=== PATIENT | female | born 2000 | race Caucasian/White ===

== ENCOUNTER 2023-04-16 15:08 | Emergency (ER) | payer OTHER ==
[~2023-04-16] VITALS: Ht 152.4 cm; Wt 84.4 kg
[2023-04-16] MEDS ORDERED: PRENA1 TRUE CO1 EACH (15:48)
[2023-04-16] MEDS ORDERED: AMPICILLIN TRI500 MG PO (18:28)
== END 2023-04-16 18:45 | disposition home or self-care (01) ==
LOC: ER 15:08
PROVIDERS: Emergency Medicine
DX: R53.81 Other malaise (principal); N39.0 Urinary tract infection, site not specified; Z3A.18 18 weeks gestation of pregnancy; Z20.822 Contact with and (suspected) exposure to COVID-19

== ENCOUNTER 2023-04-28 16:06 | Outpatient (CLI) | payer OTHER ==
[~2023-04-28 16:06] MED LIST: AMPICILLIN TRI500 MG PO; PRENA1 TRUE CO1 EACH
== END 2023-04-28 17:25 | disposition home or self-care (01) ==
LOC: PRENATAL 16:06
PROVIDERS: ATTEND Obstetrics & Gynecology Maternal & Fetal Medicine
DX: O35.3XX0 Maternal care for (suspected) damage to fetus from viral disease in mother, not applicable or unspecified (principal); O44.00 Complete placenta previa NOS or without hemorrhage, unspecified trimester; Z3A.19 19 weeks gestation of pregnancy

== ENCOUNTER 2023-07-28 13:39 | Outpatient (CLI) | payer OTHER | END 2023-07-28 13:40 | disposition home or self-care (01) | LOC: PRENATAL 13:39 | PROVIDERS: ATTEND Obstetrics & Gynecology Maternal & Fetal Medicine | DX: O26.849 Uterine size-date discrepancy, unspecified trimester (principal); O36.8199 Decreased fetal movements, unspecified trimester, other fetus; Z3A.32 32 weeks gestation of pregnancy ==